=== PATIENT | male | born 1970 | race Asian ===

== ENCOUNTER 2020-09-25 15:29 | Emergency (ER) | payer OTHER ==
[~2020-09-25] VITALS: Ht 170.2 cm; Wt 59.5 kg
[2020-09-25] MEDS ORDERED: BACI3.5O8 OS (16:13)
[2020-09-25] MEDS ORDERED: CEPH500C PO (16:13)
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
[2020-09-25] MEDS ORDERED: BACITRACIN TOPICAL OINT PACKET. TP ONE (16:15)
[2020-09-25] MEDS ORDERED: DIPH,PERTUSS(ACELL),TET VAC/PF 0.5 ML SYRINGE. VAX IM ONE (16:15)
[2020-09-25 16:32] VITALS: BP 123/94
== END 2020-09-25 17:02 | disposition home or self-care (01) ==
LOC: ER 15:29
DX: T24.212A Burn of second degree of left thigh, initial encounter (principal); X08.8XXA Exposure to other specified smoke, fire and flames, initial encounter; Y93.9 Activity, unspecified; Y92.89 Other specified places as the place of occurrence of the external cause; Y99.8 Other external cause status
CPT/HCPCS: 16020; 90471; 90715; 99283